=== PATIENT | female | born 1940 | race Caucasian/White ===

== ENCOUNTER 2016-08-24 16:16 | Inpatient (IN) | payer MEDICARE ==
[~2016-08-24] VITALS: Ht 162.6 cm; Wt 70.5 kg
[2016-08-24 17:31] LABS: ALBUMIN 3.3 g/dL (3.4-5.0); ANION GAP 15.5 mmol/L (8-16); BILIRUBIN - TOTAL 1.94 mg/dL (0.2-1.3); CALCIUM 8.4 mg/dL (8.5-10.1); CARBON DIOXIDE 20.3 mmol/L (21.0-32.0); CREATININE - SERUM 1.9 mg/dL (0.6-1.3); POTASSIUM - SERUM 3.8 mmol/L (3.5-5.1); PROTEIN - SERUM 6.5 g/dL (6.4-8.2)
[2016-08-24 17:36] LABS: HEMATOCRIT 38.9 % (36.0-48.0); HEMOGLOBIN 13.1 g/dL (12-16); MCH 30.8 pg (26.0-34.0); MCHC 33.7 g/dL (31.0-37.0); MCV 91.5 fL (80.0-100.0); MEAN PLATELET VOLUME 11.3 fL (7.4-10.4); RBC 4.25 10x6/uL (4.00-5.40); RDW 15.1 % (11.5-14.5); WBC 2.5 10x3/uL (4.8-10.8)
[2016-08-24 17:39] LABS: TROPONIN-I 0.029 ng/mL (0.000-0.060)
[2016-08-24 17:41] LABS: PLATELET COUNT 44 10x3/uL (130-400)
[2016-08-24 17:48] LABS: INR 1.01 (0.85-1.17); PROTIME 13.2 SECONDS (11.6-15.0)
[2016-08-24 17:49] LABS: APTT 32.3 SECONDS (22.8-39.4)
[2016-08-24 18:10] LABS: LYMPHOCYTES 10 % (15-50); MONOCYTES 2 % (2-11); NEUTROPHILS 70 % (40-80); PLATELET ESTIMATE DECREASED; PLATELET MORPHOLOGY GIANT PLTS PRESENT
[2016-08-24 18:47] LABS: APPEARANCE TURBID (CLEAR); BILIRUBIN NEGATIVE (NEGATIVE); COLOR DK YELLOW (YELLOW); GLUCOSE 100 mg/dL (NEGATIVE); KETONE NEGATIVE (NEGATIVE); LEUKOCYTE ESTERASE TRACE (NEGATIVE); NITRITE NEGATIVE (NEGATIVE); PROTEIN 2+ mg/dL (NEGATIVE); UROBILINOGEN NORMAL (NORMAL)
[2016-08-24 18:53] LABS: WHITE CELLS - URINE 0-5 /hpf (0-5)
[2016-08-24 18:54] LABS: AMORPHOUS SEDIMENT >1+ /lpf (NONE SEEN); BACTERIA MANY /hpf (NONE SEEN); CALCIUM OXALATE CRYSTALS 0-5 /hpf (NONE SEEN); EPITHELIAL CELLS 0-5 /hpf (0-5); HYALINE CAST 0-5 /lpf (NONE SEEN); RED CELLS - URINE OCC /hpf (0-5)
[2016-08-24] MEDS ORDERED: ALENDRONATE SOD70 MG PO (21:10)
--- NOTE | 2016-08-24 21:36 | NUR ---
PT ARRIVED VIA WHEELCHAIR, AWAKE, ALERT, ORIENTED, DENIES ANY NEEDS. PT IS IN NO ACUTE DISTRESS. CONTINUE TO MONITOR CLOSELY.
[2016-08-24 23:12] VITALS: BP 105/48; BMI 24.0
--- NOTE | 2016-08-24 23:33 | NUR ---
DURING PT HISTORY, PT IS UNABLE AT THIS TIME TO RECALL THE NAMES OF HER HOME MEDICATIONS. I ASKED PT TO PLEASE ASK HER TO BRING A LIST WITH HIM TOMORROW WHEN HE COMES TO VISIT. PT ALSO STATES THAT SHE HAS AN ADVANCE DIRECTIVE. I HAVE ALSO ASKED FOR A COPY OF THAT WELL. PT STATES SHE IS ALLERGIC TO A BLOOD PRESSURE MEDICINE THAT SHE THINKS STARTS WITH AN "A" BUT DOES NOT KNOW FOR SURE. PT HAS DEMONSTRATED MILD URINARY INCONTINENCE R/T HER UTI, BUT GENERALLY DOES NOT HAVE ANY PROBLEM WITH INCONTINENCE. PT HAS BEEN ASKED TO ALWAYS CALL BEFORE TRYING TO AMBULATE, SHE STATES SHE IS EXTREMELY WEAK R/T THE INFECTION. PT AGREED TO CALL FIRST WHEN NEEDING ANY ASSISTANCE. WILL CONTINUE TO MONITOR CLOSELY. BED LOW, CALL LIGHT IN REACH, SIDE RAILS X 2, HOB 20 DEGREES. NONSKID SOCKS HAVE BEEN PLACED BILATERALLY TO PTS FEET. CLEAN GOWN AND DISPOSABLE BRIEFS GIVEN TO PT. FRESH WATER GIVEN TO PT. NO OTHER NEEDS AT THIS TIME.
[2016-08-25] VITALS: BP 105/48
[2016-08-25 04:00] VITALS: BP 126/66
--- NOTE | 2016-08-25 05:19 | NUR ---
PT AWAKE, ALERT, ORIENTED, COLD/SHAKING, WARM BLANKET PLACED. PT DENIES ANY NEEDS, STATES SHE IS FEELING BETTER. CONTINUE TO MONITOR CLOSELY. BED LOW, CALL LIGHT IN REACH, SIDE RAILS X 2, HOB 20 DEGREES.
[2016-08-25 06:36] LABS: BASOPHILS 0 % (0-2); EOSINOPHILS 0 % (0-7); HEMATOCRIT 39.6 % (36.0-48.0); HEMOGLOBIN 13.2 g/dL (12-16); LYMPHOCYTES 21.1 % (15-50); MCH 30.6 pg (26.0-34.0); MCHC 33.3 g/dL (31.0-37.0); MCV 91.9 fL (80.0-100.0); MEAN PLATELET VOLUME 12.2 fL (7.4-10.4); MONOCYTES 5.7 % (2-11); NEUTROPHILS 73.2 % (40-80); RBC 4.31 10x6/uL (4.00-5.40); RDW 15.2 % (11.5-14.5)
[2016-08-25 06:39] LABS: PLATELET COUNT 38 10x3/uL (130-400); WBC 1.8 10x3/uL (4.8-10.8)
--- NOTE | 2016-08-25 06:45 | NUR ---
PT STILL HAVING RIGOROUS SHAKING, FSBS IS 105. WBC CRITICALLY LOW @ 1.8. WILL PL[address] PT IN NEUTROPENIC PRECAUTIONS. PT IS AWAKE, ALERT, AND ORIENTED AT THIS TIME. CONTINUE TO MONITOR CLOSELY.
[2016-08-25 06:51] LABS: ANION GAP 12.8 mmol/L (8-16); CALCIUM 7.6 mg/dL (8.5-10.1); POTASSIUM - SERUM 3.8 mmol/L (3.5-5.1)
[2016-08-25 06:54] LABS: CREATININE - SERUM 1.1 mg/dL (0.6-1.3)
--- NOTE | 2016-08-25 07:30 | NUR ---
RECEIVED REPORT. ASSUMED CARE OF PATIENT. CALL LIGHT WITHIN REACH. ALERT/ORIENTED. RESP EVEN AND UNLAOBRED. SLIGHT TREMORS OF HANDS NOTED. PATIENT ON PHONE WITH DAUGHTER AT THIS TIME. NO DISTRESS. IV FLUIDS INFUSING ORDERED.
[2016-08-25 08:00] VITALS: BP 138/62
--- NOTE | 2016-08-25 08:00 | NUR ---
PATIENT GAVE VERBAL CONSENT TO SPEAK WITH HER DAUGHTER IN REGARDS TO HER CONDITION. HER DAUGHTER IS WHITNEY - 032/418/2500. DAUGHTER LIVES IN [place] X 4 YEARS BUT KEPT HER LOCAL CELL NUMBER. WHITNEY STATES SHE IS ON HER WAY FROM [place] NOW.
--- NOTE | 2016-08-25 08:12 | NUR ---
AXILLARY TEMP 102.7 MEDICATED WITH TYLENOL AT THIS TIME. CALL LIGHT WITHIN REACH.
--- NOTE | 2016-08-25 09:18 | NUR ---
TEMP RECHECKED, 100.0 ORAL AT THIS TIME.
--- NOTE | 2016-08-25 11:39 | NUR ---
FSBS 119. NO INSULIN COVERAGE REQUIRED PER SLIDING SCALE. NO DISTRESS. JUICE PROVIDED AT THIS TIME.
--- NOTE | 2016-08-25 12:17 | NUR ---
MEDICATED FOR TEMP 101.2 ORAL. PATIENT SITTING IN BED CONSUMIN NOON MEAL AT THIS TIME. DYSPNEA NOTED WHILE EATING. PATIENT STATES SHE FEELS LIKE SHE IS JUST WHIPED OUT. O2 VIA NC A 2L/MIN. O2 SAT 97%
[2016-08-25 12:50] VITALS: BP 125/63
[2016-08-25] MEDS ORDERED: LIPITOR40 MG PO (17:27)
[2016-08-25] MEDS ORDERED: JANUMET XR 50-1 EAC1 PO (17:27)
[2016-08-25 20:00] VITALS: BP 115/54
--- NOTE | 2016-08-25 20:21 | NUR ---
PT LYING IN BED, FAMILY AT BEDSIDE. PT STATES SHE HAS BEEN FEBRILE MOST OF THE DAY, STILL HAVING RIGOROUS SHAKING. PT IS ASKING FOR SOMETHING FOR SLEEP, STATING SHE IS HAVING A DIFFICULT TIME DOING SO WHILE HERE. PT DENIES ANY OTHER NEEDS. CONTINUE TO MONITOR CLOSELY.
--- NOTE | 2016-08-26 02:18 | NUR ---
PT HAS BEEN SLEEPING BUT RESTLESS, WAKING UP OFTEN. PRN TEMAZEPAM GIVEN PER ORDER AND PT REQUEST. FAMILY AT BEDSIDE. ALSO GIVING PT PRN TYLENOL TO KEEP PTS FEVER DOWN. PT/FAMILY DENY ANY OTHER NEED. CONTINUE TO MONITOR CLOSELY.
[2016-08-26 04:00] VITALS: BP 110/46
[2016-08-26 05:11] LABS: BASOPHILS 0.6 % (0-2); EOSINOPHILS 0 % (0-7); HEMOGLOBIN 11.3 g/dL (12-16); IMMATURE GRANULOCYTES 0.6 % (0-5); LYMPHOCYTES 13.8 % (15-50); MCHC 34.2 g/dL (31.0-37.0); MCV 90.4 fL (80.0-100.0); MONOCYTES 2.8 % (2-11); NEUTROPHILS 82.2 % (40-80); RBC 3.65 10x6/uL (4.00-5.40); RDW 15.2 % (11.5-14.5)
[2016-08-26 05:12] LABS: PLATELET COUNT 24 10x3/uL (130-400)
[2016-08-26 05:13] LABS: WBC 1.8 10x3/uL (4.8-10.8)
[2016-08-26 05:30] LABS: ANION GAP 11.5 mmol/L (8-16); BILIRUBIN - TOTAL 1.24 mg/dL (0.2-1.3); CALCIUM 7.3 mg/dL (8.5-10.1); CARBON DIOXIDE 20.9 mmol/L (21.0-32.0); CREATININE - SERUM 1.2 mg/dL (0.6-1.3); POTASSIUM - SERUM 3.4 mmol/L (3.5-5.1)
[2016-08-26 05:33] LABS: ALBUMIN 2.3 g/dL (3.4-5.0); PROTEIN - SERUM 4.8 g/dL (6.4-8.2)
[2016-08-26 08:21] VITALS: BP 123/61
--- NOTE | 2016-08-26 09:30 | NUR ---
PT RESTING IN BED WITH EYES OPEN CALL LIGHT IN REACH WILL MONITER
--- NOTE | 2016-08-26 10:29 | NUR ---
IV RESTARTED BY Crystal PAGE RN IN L FOREARM. WITH 22 GA ON 1ST ATTEMPT. NO DISTRESS OR COMPLAINTS. WILL CONTINUE TO MONITOR.
--- NOTE | 2016-08-26 10:30 | NUR ---
REMOVED IV FROM RIGHT FOREARM WITH TIP INTACT DUE TO INFILTRATION. COVERED WITH 2X2 GAUZE AND TAPE. SITED 22G IV TO LEFT FOREARM SECURED WITH TAPE, COVERED WITH OP SITE. INITIALED AND DATED. ONE ATTEMPT. TOLERATED WELL.
[2016-08-26 11:51] VITALS: BP 100/58
[2016-08-26 13:06] VITALS: Ht 162.6 cm; Wt 70.5 kg
[2016-08-26 17:11] VITALS: BP 121/54
[2016-08-26 21:25] VITALS: BP 114/63
--- NOTE | 2016-08-27 00:40 | NUR ---
CALCULUS TEACHER AT BEDSIDE FOR VS. NEEDS ADDRESSED AT THIS TIME. CALL LIGHT IN REACH. WILL CONT TO MONITOR.
[2016-08-27 01:00] VITALS: BP 108/60
--- NOTE | 2016-08-27 02:00 | NUR ---
REST QUIETLY IN BED WITH EYE CLOSE, CALL LIGHT WITHIN REACH.
[2016-08-27 04:00] VITALS: BP 109/60
[2016-08-27 05:59] LABS: BASOPHILS 0.8 % (0-2); EOSINOPHILS 0 % (0-7); HEMATOCRIT 32.2 % (36.0-48.0); HEMOGLOBIN 11.3 g/dL (12-16); IMMATURE GRANULOCYTES 1.9 % (0-5); LYMPHOCYTES 15.9 % (15-50); MCHC 35.1 g/dL (31.0-37.0); MCV 88.5 fL (80.0-100.0); MONOCYTES 4.6 % (2-11); NEUTROPHILS 76.8 % (40-80); RBC 3.64 10x6/uL (4.00-5.40); RDW 15.4 % (11.5-14.5)
[2016-08-27 06:28] LABS: WBC 7.4 10x3/uL (4.8-10.8)
[2016-08-27 06:39] LABS: ALBUMIN 1.9 g/dL (3.4-5.0); ANION GAP 14.3 mmol/L (8-16); BILIRUBIN - TOTAL 0.84 mg/dL (0.2-1.3); CALCIUM 7.4 mg/dL (8.5-10.1); CREATININE - SERUM 0.9 mg/dL (0.6-1.3); POTASSIUM - SERUM 3.3 mmol/L (3.5-5.1); PROTEIN - SERUM 4.5 g/dL (6.4-8.2)
[2016-08-27 06:40] LABS: PLATELET COUNT 28 10x3/uL (130-400)
--- NOTE | 2016-08-27 07:00 | NUR ---
RECIEVED REPORT. ASSUMED CARE OF PATIENT. PATIENTS DAUGHTERS AT BEDSIDE. RESTING WITH EYES CLOSED. EASILY AROUSED. RESP EVEN AND UNLABORED. NO DISTRESS. CALL LIGHT WITHIN REACH. IV FLUIDS INFUSING ORDERED.
[2016-08-27 08:00] VITALS: BP 115/62
--- NOTE | 2016-08-27 11:27 | NUR ---
FSBS 138. NO COVERAGE REQUIRED PER SLIDING SCALE.
--- NOTE | 2016-08-27 11:53 | NUR ---
NEW ORDERS RECEIVED FOR ONE TIME DOSE OF KCL 40MEQ PATIENT CAN NOT TOLERATED LIQUID AND DAUGHTERS PERFER IT NOT BE GIVEN IV DUE TO WHERE HER IV IS PLACE IN THE FOREARM. ALSO RECEIVED NEW ORDERS FOR MAGIC MOUTHWASH FOR MOUTH PAIN. ORDERS PLACED.
[2016-08-27 12:00] VITALS: BP 123/60
[2016-08-27 16:00] VITALS: BP 122/59
--- NOTE | 2016-08-27 16:43 | NUR ---
FSBS 147. NO INSULIN COVERAGE REQUIRED. ASSISTED PATIENT TO AND FROM RESTROOM. NO DISTRESS. CALL LIGHT WITHIN REACH.
[2016-08-27 20:47] VITALS: BP 119/65
[2016-08-28 00:39] VITALS: BP 124/64
--- NOTE | 2016-08-28 01:30 | NUR ---
FIBERGLASS GRINDER PRESENT IN ROOM REPOSITIONING PATIENT. NO OTHER NEEDS VOICED.
--- NOTE | 2016-08-28 04:24 | NUR ---
DIGITAL PRODUCT MANAGER ASSISTING TO BATHROOM. AMBULATED WITH SLOW STEADY GAIT.
[2016-08-28 05:12] LABS: BASOPHILS 1.2 % (0-2); EOSINOPHILS 0 % (0-7); HEMOGLOBIN 11.8 g/dL (12-16); IMMATURE GRANULOCYTES 2.6 % (0-5); LYMPHOCYTES 17.1 % (15-50); MCH 30.7 pg (26.0-34.0); MCHC 34.7 g/dL (31.0-37.0); MCV 88.5 fL (80.0-100.0); MEAN PLATELET VOLUME 11.5 fL (7.4-10.4); MONOCYTES 9.1 % (2-11); RBC 3.84 10x6/uL (4.00-5.40); RDW 15.5 % (11.5-14.5)
[2016-08-28 05:14] LABS: PLATELET COUNT 49 10x3/uL (130-400)
[2016-08-28 05:16] LABS: APTT 34.5 SECONDS (22.8-39.4); INR 0.97 (0.85-1.17); PROTIME 12.7 SECONDS (11.6-15.0)
[2016-08-28 05:29] LABS: ALKALINE PHOSPHATASE 131 U/L (46-116); ALT (SGPT) 71 U/L (10-68); BILIRUBIN - TOTAL 1.11 mg/dL (0.2-1.3); CARBON DIOXIDE 21.5 mmol/L (21.0-32.0); CHLORIDE - SERUM 104 mmol/L (98-107); GLUCOSE 106 mg/dL (74-106); PROTEIN - SERUM 4.7 g/dL (6.4-8.2); SODIUM 134 mmol/L (136-145)
[2016-08-28 05:49] VITALS: BP 133/82; BP 160/67
[2016-08-28 05:53] LABS: CALC OSMOLALITY 266 mosm/kg (275-300); CALCIUM 7.6 mg/dL (8.5-10.1); CREATININE - SERUM 0.6 mg/dL (0.6-1.3); POTASSIUM - SERUM 3.9 mmol/L (3.5-5.1); UREA NITROGEN 9 mg/dL (7-18); eGFR NON AFRICAN AMERICAN > 90 mL/min (90-120)
[2016-08-28 08:00] VITALS: BP 125/56
--- NOTE | 2016-08-28 08:24 | NUR ---
AM ROUNDS - PT WALKING THE FLOOR WITH FAMILY MEMBER. NON SKID SOCKS ON. PT HAD YELLOW BAND ON. LEFT FA, NS AT 100CC/HR. PT CAME BACK TO ROOM AND SAT IN CHAIR. NO NEEDS AT THIS TIME. WILL CONTINUE TO MONITOR
[2016-08-28 12:46] VITALS: BP 127/68
[2016-08-28 15:58] VITALS: BP 134/64
--- NOTE | 2016-08-28 16:34 | NUR ---
Patient Name: SHAAN IBANEZ Admission Status: ER Accout number: [id number] Admission Date: 08-24-2016 : 1940 Admission Diagnosis:URINARY TRACT INFECTION, SITE NOT SPECIFIED Attending: ANJALI Current LOS: 4 Anticipated DC Date: Planned Disposition: Home Primary Insurance: [facility] Discharge Planning Comments: * Is the patient Alert and Oriented? Yes 0 * How many steps to enter\exit or inside your home? 3 0 * PCP DR. JESUS QUEZADA [place] 0 * Pharmacy [facility] 0 * Preadmission Environment Home with Family 0 * ADLs Independent 0 * Equipment Cane Walker 0 * Other Equipment [employer] [facility] NO OTHER PROVIDER PREFERENCE 0 * List name and contact numbers for known caregivers / representatives who currently or will assist patient after discharge: CK IBANEZ, SPOUSE, 0 * Community resources currently utilized None 0 * Please name any agencies selected above. NONE 0 * Additional services required to return to the preadmission environment? No 0 * Can the patient safely return to the preadmission environment? Yes 0 * Has this patient been hospitalized within the prior 30 days at any hospital? No 0 CM MET WITH PT AND DAUGHTERS IN ROOM TO DISCUSS DISCHARGE PLANNING AND NEEDS. PT REPORTS LIVING AT HOME INDEPENDENTLY WITH HER SPOUSE. PT HAS CANE AND WALKER AT HOME AND PREFERS TO USE [employer] IF SHE NEEDS ANY OTHER ASSISTIVE EQUIPMENT AT HOME. PT HAS NO OUTSIDE SERVICES ASSISTING IN THE HOME. CM DISCUSSED AVAILABILITY OF HOME HEALTH, REHAB SERVICES AND MEDICAL EQUIPMENT. PT DENIES DISCHARGE NEEDS AT THIS TIME, PLANS TO RETURN HOME AT DISCHARGE, REPORTS HER SPOUSE WILL PICK HER UP FOR DISCHARGE HOME. IMPORTANT MESSAGE FROM MEDICARE PROVIDED AND EXPLAINED. PT PLANS TO DISCHARGE HOME WITH SPOUSE, NO ANTICIPATED NEEDS AT THIS TIME. CM TO FOLLOW AND ASSIST NEEDED. Route Agent: Burak Del Cid
--- NOTE | 2016-08-28 18:20 | NUR ---
PT IN CHAIR. FAMILY AT BEDSIDE. DINNER COMPLETE. NO NEEDS AT THIS TIME. WILL CONTINUE OT MONITOR
[2016-08-28 20:04] VITALS: BP 173/83
--- NOTE | 2016-08-28 21:40 | NUR ---
ALERT/AWAKE TALKING TO FAMILY PRESENT IN ROOM. ADMIN SCHED MEDS. CHECKED BS AT 122. DENIES PAIN OR ANY NEEDS.
--- NOTE | 2016-08-28 23:45 | NUR ---
ADMIN ZOFRAN 4MG IV FOR N/V. GOT HER ANOTHER GOWN, TOWELS. HELPING TO CLEAN UP.
[2016-08-29 00:24] VITALS: BP 152/81
--- NOTE | 2016-08-29 02:18 | NUR ---
RESTING QUIETLY WITH EYES CLOSED. HER DAUGHTER STATED SHE DID NOT HAVE ANOTHER EPISODE OF VOMITING SINCE ADMINISTERING THE ZOFRAN.
[2016-08-29 04:32] VITALS: BP 155/75
[2016-08-29 05:17] LABS: HEMATOCRIT 33.6 % (36.0-48.0); HEMOGLOBIN 11.6 g/dL (12-16); MCH 30.6 pg (26.0-34.0); MCHC 34.5 g/dL (31.0-37.0); MCV 88.7 fL (80.0-100.0); MEAN PLATELET VOLUME 11.3 fL (7.4-10.4); PLATELET COUNT 75 10x3/uL (130-400); RBC 3.79 10x6/uL (4.00-5.40); RDW 15.8 % (11.5-14.5); WBC 21.4 10x3/uL (4.8-10.8)
[2016-08-29 05:34] LABS: ALBUMIN 2.1 g/dL (3.4-5.0); ALKALINE PHOSPHATASE 154 U/L (46-116); CALC OSMOLALITY 275 mosm/kg (275-300); CALCIUM 7.4 mg/dL (8.5-10.1); CARBON DIOXIDE 23.9 mmol/L (21.0-32.0); CHLORIDE - SERUM 106 mmol/L (98-107); CREATININE - SERUM 0.7 mg/dL (0.6-1.3); GLUCOSE 123 mg/dL (74-106); POTASSIUM - SERUM 3.9 mmol/L (3.5-5.1); SODIUM 138 mmol/L (136-145); UREA NITROGEN 9 mg/dL (7-18); eGFR NON AFRICAN AMERICAN 87 mL/min (90-120)
[2016-08-29 05:37] LABS: EOSINOPHILS 1 % (0-7); LYMPHOCYTES 25 % (15-50); MONOCYTES 2 % (2-11); NEUTROPHILS 56 % (40-80); PLATELET ESTIMATE DECREASED
[2016-08-29 05:38] LABS: ALT (SGPT) 142 U/L (10-68)
--- NOTE | 2016-08-29 07:52 | NUR ---
AM ROUNDS - PT IS AWAKE IN BED. FAMILY AT BEDSIDE. NON SKID SOCKS ON. IV TO LEFT FA, NS AT 30CC/HR. PT ON RA. PT STATES SHE HAS A NON PRODUCTIVE COUGH. MONITOR SHOWING SR WITH PAC. HR 91. SCDS. NO FUTHER NEEDS AT THIS TIME. WILL CONTINUE TO MONITOR
[2016-08-29 07:54] VITALS: BP 165/83
[2016-08-29] MEDS ORDERED: VIBRAMYCIN 100100 MG PO (12:07)
[2016-08-29] MEDS ORDERED: FLORAJEN3 CAPS460 MG PO (12:08)
[2016-08-29] MEDS ORDERED: ZOFRAN ODT4 MG/UDTAB PO (12:09)
[2016-08-29] MEDS ORDERED: ONCOLOGY MOUTHWA5 ML PO (12:10)
[2016-08-29 12:20] VITALS: BP 134/75
--- NOTE | 2016-08-29 13:42 | NUR ---
PT IN BED AND APPEARS TO BE RESTING. FAMILY AT BEDSIDE. PT IS "READY TO GO HOME" SHE STATES. NO FUTHER NEEDS AT THIS TIME. PT IS AWAINING D/C ORDERS. WILL CONTINUE TO MONITOR
--- NOTE | 2016-08-29 14:13 | NUR ---
D/C - VERBAL AND WRITTEN D/C INSTRUCTIONS GIVEN TO PT AND FAMILY MEMBER. IV TO LEFT FA REMOVED, CATH TIP INTACT. PT TOLERATED WELL. HEART MONITOR REMOVED AND RETURNED TO ROUTE DELIVERY SUPERVISOR. PT GETTING DRESSED WITH HELP FROM A FAMILY MEMBER. WILL CALL FOR A WHEELCHAIR WHEN PT IS READY.
--- NOTE | 2016-08-29 14:54 | NUR ---
PT LEFT FLOOR VIA WHEELCHAIR BY A VOLUNTEER. WILL D/C
[2016-08-29 15:19] LABS: RMSF IGM 1.07 index (0.00-0.89)
[2016-08-30 15:22] LABS: EHRLICHIA CHAFF IGG Negative (Neg:<1:64); EHRLICHIA CHAFF IGM Negative (Neg:<1:20); HGE IGG TITER Negative (Neg:<1:64); HGE IGM TITER Negative (Neg:<1:20)
== END 2016-08-29 14:55 | disposition home or self-care (01) | DRG 872 ==
LOC: D.ER 16:16 → D.M2 19:50
PROVIDERS: Emergency Medicine; Internal Medicine Hematology & Oncology; ADMIT Family Medicine
DX: A41.9 Sepsis, unspecified organism (principal); N39.0 Urinary tract infection, site not specified; D61.818 Other pancytopenia; B37.0 Candidal stomatitis; I10 Essential (primary) hypertension; E11.65 Type 2 diabetes mellitus with hyperglycemia; T14.8 Other injury of unspecified body region; W57.XXXA Bitten or stung by nonvenomous insect and other nonvenomous arthropods, initial encounter

== ENCOUNTER 2018-01-01 18:34 | Emergency (ER) | payer MEDICARE ==
[~2018-01-01] VITALS: Ht 162.6 cm; Wt 61.4 kg
[~2018-01-01 18:34] MED LIST: ALENDRONATE SOD70 MG PO; FLORAJEN3 CAPS460 MG PO; JANUMET XR 50-1 EAC1 PO; LIPITOR40 MG PO; ONCOLOGY MOUTHWA5 ML PO; VIBRAMYCIN 100100 MG PO; ZOFRAN ODT4 MG/UDTAB PO
[2018-01-01 19:03] VITALS: Ht 162.6 cm; Wt 61.4 kg
[2018-01-01] MEDS ORDERED: BENICAR40 MG PO (19:09)
[2018-01-01 19:26] LABS: BASOPHILS 0.5 % (0-2); HEMATOCRIT 41.7 % (36.0-48.0); HEMOGLOBIN 13.7 g/dL (12-16); IMMATURE GRANULOCYTES 0.2 % (0-5); MCH 29.2 pg (26.0-34.0); MCHC 32.9 g/dL (31.0-37.0); MCV 88.9 fL (80.0-100.0); MEAN PLATELET VOLUME 10.2 fL (7.4-10.4); NEUTROPHILS 63.3 % (40-80); RBC 4.69 10x6/uL (4.00-5.40); RDW 16.2 % (11.5-14.5)
[2018-01-01 19:27] LABS: PLATELET COUNT 215 10x3/uL (130-400)
[2018-01-01 19:35] LABS: APTT 24.8 SECONDS (22.8-39.4); INR 1.06 (0.85-1.17); PROTIME 13.4 SECONDS (11.6-15.0)
[2018-01-01 19:39] LABS: ALKALINE PHOSPHATASE 101 U/L (46-116); ALT (SGPT) 37 U/L (10-68); BILIRUBIN - TOTAL 1.55 mg/dL (0.2-1.3); CALC OSMOLALITY 280 mosm/kg (275-300); CALCIUM 9.7 mg/dL (8.5-10.1); CARBON DIOXIDE 27.7 mmol/L (21.0-32.0); CHLORIDE - SERUM 103 mmol/L (98-107); CREATININE - SERUM 0.9 mg/dL (0.6-1.3); GLUCOSE 105 mg/dL (74-106); POTASSIUM - SERUM 4.6 mmol/L (3.5-5.1); PROTEIN - SERUM 7.7 g/dL (6.4-8.2); SODIUM 140 mmol/L (136-145); UREA NITROGEN 18 mg/dL (7-18); eGFR NON AFRICAN AMERICAN 65 mL/min (90-120)
[2018-01-01 19:51] LABS: CKMB 1.5 U/L (0.0-3.6); CREATINE KINASE 139 UL (21-215); MAGNESIUM - SERUM 2.2 mg/dL (1.8-2.4); THYROID STIMULATING HORMONE 1.46 uIU/mL (0.36-3.74); TROPONIN-I < 0.017 ng/mL (0.000-0.060)
[2018-01-01 20:57] LABS: APPEARANCE CLEAR (CLEAR); BILIRUBIN NEGATIVE (NEGATIVE); COLOR DK YELLOW (YELLOW); GLUCOSE NEGATIVE (NEGATIVE); KETONE SMALL mg/dL (NEGATIVE); NITRITE NEGATIVE (NEGATIVE); PROTEIN TRACE mg/dL (NEGATIVE); UROBILINOGEN NORMAL (NORMAL)
[2018-01-01 20:59] LABS: RED CELLS - URINE 0-5 /hpf (0-5); WHITE CELLS - URINE 0-5 /hpf (0-5)
[2018-01-01 21:00] LABS: BACTERIA FEW /hpf (NONE SEEN); MUCUS <1+ /lpf (NONE SEEN)
[2018-01-01] MEDS ORDERED: MACROBID100 MG PO (21:14)
[2018-01-01 21:30] VITALS: BP 152/76
== END 2018-01-01 21:30 | disposition home or self-care (01) ==
LOC: D.ER 18:34
PROVIDERS: Family Medicine
DX: R49.8 Other voice and resonance disorders (principal); H92.02 Otalgia, left ear; N39.0 Urinary tract infection, site not specified; E11.9 Type 2 diabetes mellitus without complications; I10 Essential (primary) hypertension

== ENCOUNTER 2019-05-05 12:39 | Emergency (ER) | payer MEDICARE ==
[~2019-05-05] VITALS: Ht 162.6 cm; Wt 60.0 kg
[~2019-05-05 12:39] MED LIST changes: +BENICAR40 MG PO; +MACROBID100 MG PO
[2019-05-05 12:53] VITALS: Ht 162.6 cm; Wt 60.0 kg
[2019-05-05 13:45] LABS: BASOPHILS 0.5 % (0-2); EOSINOPHILS 3.5 % (0-7); HEMOGLOBIN 16.2 g/dL (12-16); IMMATURE GRANULOCYTES 0.1 % (0-5); LYMPHOCYTES 32.2 % (15-50); MCHC 34.5 g/dL (31.0-37.0); MCV 98.5 fL (80.0-100.0); MEAN PLATELET VOLUME 10.9 fL (7.4-10.4); MONOCYTES 5.7 % (2-11); RBC 4.77 10x6/uL (4.00-5.40); RDW 14.4 % (11.5-14.5); WBC 8.3 10x3/uL (4.8-10.8)
[2019-05-05 13:47] LABS: PLATELET COUNT 163 10x3/uL (130-400)
[2019-05-05 13:54] LABS: CALC OSMOLALITY 282 mosm/kg (275-300); CALCIUM 9.6 mg/dL (8.5-10.1); CARBON DIOXIDE 27.8 mmol/L (21.0-32.0); CHLORIDE - SERUM 105 mmol/L (98-107); CREATININE - SERUM 0.8 mg/dL (0.6-1.3); GLUCOSE 120 mg/dL (74-106); SODIUM 141 mmol/L (136-145); UREA NITROGEN 14 mg/dL (7-18); eGFR NON AFRICAN AMERICAN 74 mL/min (90-120)
[2019-05-05] MEDS ORDERED: HYDROCODON-ACE1 EAC7 PO (14:06)
[2019-05-05] MEDS ORDERED: FLOMAX0.4 MG PO (14:06)
[2019-05-05 14:14] LABS: ALBUMIN 3.6 g/dL (3.4-5.0); ALKALINE PHOSPHATASE 107 U/L (30-120); ALT (SGPT) 33 U/L (10-68); AMYLASE - SERUM 40 U/L (25-115); BILIRUBIN - TOTAL 1.17 mg/dL (0.2-1.3); LIPASE 76 U/L (73-393); PROTEIN - SERUM 6.5 g/dL (6.4-8.2); TROPONIN-I < 0.017 ng/mL (0.000-0.060)
[2019-05-05 14:17] LABS: BILIRUBIN NEGATIVE (NEGATIVE); GLUCOSE NEGATIVE (NEGATIVE); KETONE NEGATIVE (NEGATIVE); NITRITE NEGATIVE (NEGATIVE); SPECIFIC GRAVITY 1.015 (1.005-1.020); UROBILINOGEN NORMAL (NORMAL)
[2019-05-05 14:18] LABS: BACTERIA FEW /hpf (NEGATIVE); EPITHELIAL CELLS RARE /hpf (0-5); WHITE CELLS - URINE RARE /hpf (NEGATIVE)
[2019-05-05] MEDS ORDERED: MACROBID100 MG PO (14:24)
[2019-05-05 14:52] VITALS: BP 144/70
== END 2019-05-05 14:52 | disposition home or self-care (01) ==
LOC: D.ER 12:39
PROVIDERS: Emergency Medicine
DX: R10.9 Unspecified abdominal pain (principal); N20.0 Calculus of kidney; I10 Essential (primary) hypertension; Z72.0 Tobacco use